=== PATIENT | male | born 1965 | race Caucasian/White ===

== ENCOUNTER 2018-07-04 07:02 | Observation (INO) | payer OTHER ==
[2018-07-01 10:27] LABS: BASOPHILS # (AUTO) 0.05 x10^3/uL (0-0.1); BASOPHILS % (AUTO) 1 % (0-1); EOSINOPHILS # (AUTO) 0.25 x10^3/uL (0-0.4); EOSINOPHILS % (AUTO) 4 % (1-7); LYMPHOCYTES # (AUTO) 2.36 x10^3/uL (1-3.4); LYMPHOCYTES % (AUTO) 40 % (22-44); MD NO; MEAN CORPUSCULAR HEMOGLOBIN 32.9 pg (27.5-34.5); MEAN CORPUSCULAR HGB CONC 34.5 g/dL (33.2-36.2); MEAN CORPUSCULAR VOLUME 95.6 fL (81-97); MONOCYTES # (AUTO) 0.43 x10^3/uL (0.2-0.8); MONOCYTES % (AUTO) 7 % (2-9); NEUTROPHILS # (AUTO) 2.79 x10^3/uL (1.8-6.8); NEUTROPHILS % (AUTO) 47 % (42-75); PLATELET COUNT 169 x10^3/uL (130-400)
[2018-07-01 10:40] LABS: ALBUMIN 4.1 g/dL (3.4-5.0); ANION GAP 5 mmol/L (5-15); CALCIUM 8.5 mg/dL (8.5-10.1); CHLORIDE 107 mmol/L (98-107)
[2018-07-01 10:46] LABS: ALANINE AMINOTRANSFERASE 38 U/L (12-78); ALKALINE PHOSPHATASE 46 U/L (45-117); BILIRUBIN,TOTAL 1.2 mg/dL (0.2-1.0); CREATININE 0.99 mg/dL (0.7-1.3); TOTAL PROTEIN 7.6 g/dL (6.4-8.2)
[~2018-07-04] VITALS: Ht 185.4 cm; Wt 103.8 kg
[~2018-07-04 07:02] MED LIST: APIX5TAB PO; CYANOCOBALAMIN PO; FOLI0.4T2 PO; Iron PO; PYRIDOXINE PO
[2018-07-04] MEDS ORDERED: LACTATED RINGERS 1,000 ML IV SCH ×2 (07:25→11:05)
[2018-07-04] MEDS ORDERED: BUPIVACAINE/PF-EPI 0.5% 1:200K ONE (07:32)
[2018-07-04 07:49] VITALS: BP 146/94
[2018-07-04] MEDS ORDERED: hydrALAzine 20 MG/ML, 1ML IV PRN ×2 (08:00→11:30)
[2018-07-04] MEDS ORDERED: LABETALOL 5MG/ML, 20ML IV PRN (08:00)
[2018-07-04] MEDS ORDERED: OXYcodone 5 MG/5 ML ORAL.SOL UDC PO PRN (08:00)
[2018-07-04] MEDS ORDERED: PROMETHAZINE 25 MG/ML, 1ML IV PRN (08:00)
[2018-07-04] MEDS ORDERED: ONDANSETRON 2MG/ML, 2ML IV PRN (08:00)
[2018-07-04] MEDS ORDERED: ACETAMINOPHEN 500 MG TABLET PO ONE (08:00)
[2018-07-04] MEDS ORDERED: EPHEDRINE 50 MG/ML, 1ML IVPush PRN (08:00)
[2018-07-04] MEDS ORDERED: ALBUTEROL SULFATE 2.5 MG/3 ML NPPB PRN (08:00)
[2018-07-04] MEDS ORDERED: MEPERIDINE/PF 25MG/0.5ML IVPush PRN (08:00)
[2018-07-04] MEDS ORDERED: METOPROLOL 1 MG/ML, 5ML IV PRN (08:00)
[2018-07-04] MEDS ORDERED: ACETAMINOPHEN 325 MG TABLET PO PRN (08:00)
[2018-07-04] MEDS ORDERED: ONDANSETRON ODT 8 MG PO ONE (08:30)
[2018-07-04] MEDS ORDERED: GABAPENTIN 300 MG CAPSULE PO ONE (08:30)
[2018-07-04] MEDS ORDERED: OXYcodone IR 5MG TABLET PO ONE (08:30)
[2018-07-04] MEDS ORDERED: MIDAZOLAM 1 MG/ML, 2ML ONE ×2 (09:13→10:02)
[2018-07-04] MEDS ORDERED: PROPOFOL 10 MG/ML, 20ML ONE (09:50)
[2018-07-04] MEDS ORDERED: ROCURONIUM 10MG/ML,5ML ONE (09:50)
[2018-07-04] MEDS ORDERED: CEFOTETAN PMX 1GM/50ML 50 ML ONE ×2 (09:51)
[2018-07-04] MEDS ORDERED: DEXAMETHASONE 4 MG/ML, 1ML ONE ×2 (09:51)
[2018-07-04] MEDS ORDERED: ONDANSETRON 2MG/ML, 2ML ONE (09:51)
[2018-07-04] MEDS ORDERED: FENTANYL PF 100 MCG/2ML ONE ×2 (10:02→10:51)
[2018-07-04] MEDS ORDERED: GLYCOPYRROLATE 0.4 MG/2 ML, 2ML ONE (10:37)
[2018-07-04] MEDS ORDERED: NEOSTIGMINE 1 MG/ML, 10ML ONE (10:37)
[2018-07-04] MEDS ORDERED: KETOROLAC 30 MG/1 ML ONE (10:41)
[2018-07-04] MEDS ORDERED: HYDROmorphone 2 MG/ML, 1ML ONE (10:51)
[2018-07-04] MEDS: FENTANYL PF 100 MCG/2ML IV PRN ×2 (11:04→11:11)
[2018-07-04] MEDS: HYDROmorphone 2 MG/ML, 1ML IV PRN ×5 (11:18→11:50)
[2018-07-04] MEDS ORDERED: CEFAZOLIN PMX 2GM/50ML 50 ML IVPB SCH (11:30)
[2018-07-04] MEDS ORDERED: PROMETHAZINE 25 MG/ML, 1ML IM PRN (11:30)
[2018-07-04] MEDS ORDERED: FAMOTIDINE 20 MG/2 ML IV SCH (11:30)
[2018-07-04] MEDS ORDERED: ENALAPRILAT 1.25 MG/ML, 2ML IV PRN (11:30)
[2018-07-04] MEDS ORDERED: LORazepam 2 MG/ML, 1ML IV PRN (11:30)
[2018-07-04] MEDS ORDERED: morphine SULFATE 10 MG/ML, 1ML IV PRN (11:30)
[2018-07-04] MEDS ORDERED: HYDROcodone/APAP 5/325 TABLET PO PRN (11:30)
[2018-07-04] MEDS ORDERED: ONDANSETRON 2MG/ML, 2ML IVPush PRN (11:30)
[2018-07-04] MEDS ORDERED: KETOROLAC 30 MG/1 ML IV PRN (11:30)
[2018-07-04] MEDS ORDERED: PROMETHAZINE 12.5 MG SUPP PR PRN (11:30)
[2018-07-04] MEDS ORDERED: DIPHENHYDRAMINE 50 MG/ML, 1ML IV PRN (11:30)
[2018-07-05] MEDS ORDERED: ENOXAPARIN 40 MG/0.4 ML SQ SCH (09:00)
== END 2018-07-04 14:30 | disposition home or self-care (01) ==
LOC: INTOOBSV 07:02 → ORIP 07:02 → EDSTATUS 09:00
PROVIDERS: ADMIT Thoracic Surgery (Cardiothoracic Vascular Surgery); ATTEND Thoracic Surgery (Cardiothoracic Vascular Surgery)
DX: K56.1 Intussusception (principal)
CPT/HCPCS: 36415; 49000; 80053; 85025; 86850; 86900; 93005; G0378; J1100; J1170; J1885; J2250; J2405; J2704; J2710; J3010; J7120; Q0162; S0074